=== PATIENT | male | born 1990 | race Caucasian/White ===

== ENCOUNTER 2020-05-19 09:51 | Emergency (ER) | payer BC ==
[~2020-05-19] VITALS: Ht 188 cm; Wt 117.9 kg
[~2020-05-19 09:51] MED LIST: BACTRIM DS TAB1 EACH PO; NORCO 5-325 TA1 EACH PO
[2020-05-19] MEDS ORDERED: ONDANSETRON ODT8 MG PO (11:46)
== END 2020-05-19 11:58 | disposition home or self-care (01) ==
LOC: ED 09:51
DX: F10.10 Alcohol abuse, uncomplicated (principal); Z87.891 Personal history of nicotine dependence
CPT/HCPCS: 80053; 83690; 85025; 96374; 99284-25; J2405

== ENCOUNTER 2024-04-15 18:59 | Emergency (ER) | payer OTHER ==
[~2024-04-15] VITALS: Ht 188 cm; Wt 95.0 kg
[~2024-04-15 18:59] MED LIST changes: +METOPROLOL SUCC25 MG PO; +NALTREX1.5 MG PO; +ONDANSETRON ODT8 MG PO
[2024-04-15] MEDS ORDERED: VIVITROL380 MG IM (20:44)
[2024-04-15] MEDS ORDERED: ATORVASTATIN CA20 MG PO (20:44)
[2024-04-15] MEDS ORDERED: CYCLOBENZAPRINE10 MG PO (20:45)
[2024-04-15] MEDS ORDERED: DOXEPIN HCL10 MG PO (20:45)
[2024-04-15] MEDS ORDERED: BUSPIRONE HCL15 MG PO (20:45)
[2024-04-15] MEDS ORDERED: HYDROXYZINE HCL50 MG PO (20:45)
[2024-04-15] MEDS ORDERED: PREGABALIN50 MG PO (20:45)
[2024-04-15] MEDS ORDERED: ROPINIROLE HCL1 MG PO (20:46)
[2024-04-15] MEDS ORDERED: DOXYCYCLINE HY100 MG PO (21:10)
[2024-04-15] MEDS ORDERED: DOXYCYCLINE HYCLATE 100 MG HOME.PACK PO ONE (21:15)
[2024-04-15 21:24] VITALS: BP 138/90
== END 2024-04-15 21:24 | disposition home or self-care (01) ==
LOC: ED 18:59
DX: L73.9 Follicular disorder, unspecified (principal); I10 Essential (primary) hypertension; Z87.891 Personal history of nicotine dependence; Z79.899 Other long term (current) drug therapy
CPT/HCPCS: 99282; A9270